=== PATIENT | female | born 1995 | race Caucasian/White ===

== ENCOUNTER → 2024-09-10 10:51 | Outpatient (REF) | payer OTHER, SELFPAY | LOC: PNTC 10:51 | PROVIDERS: ATTENDING PHYSICIAN Student in an Organized Health Care Education/Training Program | DX: Z36.82 Encounter for antenatal screening for nuchal translucency (principal); Z36.0 Encounter for antenatal screening for chromosomal anomalies | CPT/HCPCS: 76801; 76813 ==

== ENCOUNTER → 2024-10-08 10:53 | Outpatient (REF) | payer OTHER, SELFPAY | LOC: PNTC 10:53 | PROVIDERS: ATTENDING PHYSICIAN Student in an Organized Health Care Education/Training Program | DX: O99.210 Obesity complicating pregnancy, unspecified trimester (principal); O14.90 Unspecified pre-eclampsia, unspecified trimester | CPT/HCPCS: 76805 ==

== ENCOUNTER 2024-10-09 21:18 | Emergency (ER) | payer OTHER, SELFPAY ==
[2024-10-09 21:33] VITALS: BP 127/87
[2024-10-09 22:01] LABS: Hematocrit 42.7 % (37.0-47.0); Hemoglobin 15.3 g/dL (12.0-16.0); Mean Corp Hgb Conc. 35.8 g/dL (33.0-37.0); Mean Corpuscular Hgb 31.4 pg (27.0-31.0); Mean Corpuscular Volume 87.5 fL (81.0-99.0); Mean Platelet Volume 9.6 fL (7.4-10.4); Platelet Count 277 10^3/uL (130-400); Red Blood Cell Count 4.88 10^6/uL (4.20-5.40); White Blood Cell Count 23.1 10^3/uL (4.8-10.8)
[2024-10-09 22:08] LABS: COVID-19 Antigen Negative (Negative)
[2024-10-09 22:13] LABS: ALT (SGPT) 19 U/L (0-35); AST (SGOT) 26 U/L (14-36); Albumin 4.5 g/dl (3.5-5.0); Alkaline Phosphatase 74 U/L (38-126); Blood Urea Nitrogen 11 mg/dl (7-17); Calcium 9.2 mg/dl (8.4-10.2); Carbon Dioxide 24 mmol/L (22-30); Chloride 99 mmol/L (98-107); Glucose 117 mg/dl (70-99); Potassium 3.4 mmol/L (3.5-5.1); Sodium 133 mmol/L (135-145); Total Bilirubin 0.5 mg/dl (0.2-1.3); Total Protein 7.7 g/dl (6.3-8.2); eGFR > 60.00
[2024-10-09 22:14] LABS: Lipase 85 U/L (23-300)
[2024-10-09 22:23] VITALS: BMI 30.6
[2024-10-09] MEDS: ZOFRAN 4 MG IV (22:26)
[2024-10-09 22:32] LABS: % Basophils 0.2 % (0-2); % Eosinophils 0.2 % (0-6); % Immature Granulocytes 0.6 % (0-0.5); % Monocytes 5.7 % (1.7-9.3); % Neutrophils 89.3 % (42.2-75.2); Absolute Basophils 0.1 10^3/uL (0-0.2); Absolute Immature Granulocytes 0.1 10^3/uL (0-0.05); Absolute Lymphocytes 0.9 10^3/uL (1.2-3.4); Absolute Monocytes 1.3 10^3/uL (0.1-0.6); Absolute Neutrophils 20.7 10^3/uL (1.4-6.5); Nucleated Red Blood Cells % 0 %
--- NOTE | 2024-10-09 22:58 | ED.GENMED ---
History of Present Illness
General
Chief Complaint: Abdominal Symptoms
Source: patient
Exam Limitations: none
Time Seen by Provider: 10/09/24 22:53
Nursing documentation reviewed up to this point in time: agreed with
History of Present Illness
History of Present Illness:
Pleasant 28-year-old female presents emergency department with nausea vomiting diarrhea since 6 PM. She does report light abdominal pain. She is 16 weeks . She called her EDUCATIONAL PARAPROFESSIONAL who advised her to come in for fluids. She denies vaginal
bleeding or discharge. She denies fever or chills. Reports no chest pain or shortness of breath.
Past History
Past History
ED Past Medical History: None
ED Past Surgical History: None
Social History
Tobacco: Non-smoker
Alcohol: None
Drug: None
Personal: Single
Living: with family
Employment: Employed
Review of Systems
Review of Systems
Allergies reviewed?: Yes
All Other Systems: ROS reviewed and negative except as documented in HPI and ROS
Constitutional: Reports no symptoms
EENT: Reports no symptoms
Respiratory: Reports no symptoms
Cardiac: Reports no symptoms
ABD/GI: Reports abdominal pain, nausea, vomiting and diarrhea
: Reports no symptoms
Musculoskeletal: Reports no symptoms
Skin: Reports no symptoms
Neurological: Reports no symptoms
Endocrine: Reports no symptoms
Hematologic/Lymphatic: Reports no symptoms
Psychiatric: Reports anxiety
Phy Exam
General Physical Exam
General Presentation: well appearing and mild distress
General age: appears stated age
General Skin: warm and dry
General Habitus: normal
General Mental: alert
General Hydration: appears well hydrated
ENT Exam
ENT Exam: EOMI, pharynx normal, neck supple and normocephalic
Eye Exam
Eye Exam: PERRL, cornea clear and conjunctiva normal
Cardiovascular Exam
Cardiovascular Exam: regular rate/rhythm, no edema, no murmur and normal peripheral pulses
Pulmonary Exam
Pulmonary Exam: lungs clear, no respiratory distress, no rales, no crackles, no rhonchi, no stridor, no wheezing and no cough
Gastrointestinal Exam
Gastrointestinal Exam: normal bowel sounds, soft, no organomegaly, no pulsatile mass and non distended
Palpation: generalized: Minimal tenderness
Auscultation of Abdomen: normal
Neurological Exam
Neurological Exam: alert, oriented x3, no motor deficits and speech normal
Musculoskeletal Exam
Musculoskeletal Exam: full ROM and no edema
Skin Exam
Skin Exam: normal color, warm/dry, no rash and no petechia
Psychiatric Exam
Psychiatric Exam: normal mood/affect
Course
Orders/Labs/Results
Orders:
Orders
10/09/24 21:37
IV Insert/Care/Rem.- Treatment PRN
10/09/24 21:46
COVID-19 Antigen Urgent
Source: Nasal Swab
Comment: .
Complete Blood Count/With Diff Urgent
Comprehensive Metabolic Panel Urgent
Lipase Urgent
10/09/24 22:04
Ondansetron Orally Disint [Zofran Odt (Orally Disintegrating)] 4 mg .ROUTE .STK-MED ONE
10/09/24 22:08
Ondansetron Injectable [Zofran] 4 mg .ROUTE .STK-MED ONE
10/09/24 22:26
Ondansetron Injectable [Zofran] 4 mg IV NOW STA
10/09/24 22:57
0.9% Sodium Chloride 1000 ml [Nss] 1,000 ml IV BOLUS
US Limited Urgent
Reason For Exam: n/v 16weeks
10/10/24 01:13
Metoclopramide [Reglan] 10 mg IV NOW STA
Abnormal Lab Results
10/09/24
21:46
WBC 23.1 H 10^3/uL
(4.8-10.8)
MCH 31.4 H pg
(27.0-31.0)
Abs Immat Gran (auto) 0.1 H 10^3/uL
(0-0.05)
Absolute Neuts (auto) 20.7 H 10^3/uL
(1.4-6.5)
Absolute Lymphs (auto) 0.9 L 10^3/uL
(1.2-3.4)
Absolute Monos (auto) 1.3 H 10^3/uL
(0.1-0.6)
Immature Gran % 0.6 H %
(0-0.5)
Neutrophils % 89.3 H %
(42.2-75.2)
Lymphocytes % 4.0 L %
(20.5-51.1)
Sodium 133 L mmol/L
(135-145)
Potassium 3.4 L mmol/L
(3.5-5.1)
Creatinine 0.5 L mg/dL
(0.6-1.0)
Glucose 117 H mg/dl
(70-99)
10/09/24 21:46
10/09/24 21:46
Vital Signs
Initial and Last Documented VS:
Initial Vital Signs
Temp Pulse Resp BP Pulse Ox
97.3 F 91 20 127/87 99
10/09/24 21:33 10/09/24 21:33 10/09/24 21:33 10/09/24 21:33 10/09/24 21:33
Last Documented Vital Signs
Temp Pulse Resp BP Pulse Ox
97.3 F 91 20 118/70 98
10/09/24 21:33 10/09/24 21:33 10/09/24 21:33 10/10/24 00:09 10/10/24 01:01
*Critical Care Note
Total Time (30-74mins, 75-104mins- exclusive of procedures): Not Applicable
Update Note
Update Note:
Nausea, diarrhea, no pelvic complaints
16 weeks and 5 day
Ultrasound pelvis
Comparison: October 08, 2024
IMPRESSION:
Single live intrauterine . heart rate 149 bpm.
Posterior placenta without retroplacental hemorrhage.
Cervix long and closed measuring at least 3.3 cm.
10/10/2024 0131 AM: Patient started to feel better. Ultrasound results discussed with her. Patient denies vaginal bleeding or discharge. She reports minimal abdominal pain. Patient denies fever or chills. She does follow-up with [facility]. She will try to remain hydrated. She understands that she may need to return to the emergency department should she not be able to keep anything down. She will get Reglan.
ED Attending Note
-
Portions of this chart may have been created with voice recognition software.� Occasional wrong word or��sound alike� substitutions may have occurred due to the inherent limitations of voice recognition software.
Discharge Plan
Departure
Patient Disposition: Home (Routine Discharge)
Date of Disposition: 10/10/24
Time of Disposition: 01:46
Patient with high blood pressure during this ER visit?: No
Condition: Fair
Discharge Problem:
Nausea and vomiting during
Instructions: Clear Liquid Diet, Jack Diet, Nausea and Vomiting, Adult (DC), Abdominal Pain
Prescriptions:
New
metoclopramide HCl [Reglan] 10 mg tablet
10 mg PO Q6H PRN (Reason: nausea and vomiting) Qty: 10 0RF
No Action
desog-e.estradiol/e.estradiol [Kariva (28)] 1 EACH tablet
1 tab PO DAILY
cyclobenzaprine 10 MG tablet
10 mg PO HS 10 Days Qty: 10 0RF
ibuprofen 600 MG tablet
600 mg PO Q8HPRN PRN (Reason: pain) Qty: 20 0RF
Referrals:
Donna Fisher MD [Family Provider] -
Activity Restrictions/Additional Instructions:
your prescriptions were sent to the [facility] pharmacy
It was a pleasure meeting you and taking part in your care. We hope for your continued healing and wellness.
Please read discharge instructions in their entirety. However, they are for general education and may not describe your exact diagnosis at discharge. Information on your ER visit and medical conditions were discussed with you along with appropriate
follow up information...
If indicated, please take your medications as instructed and indicated on discharge paperwork.
Please schedule a follow up appointment as directed. Call to schedule an appointment
Please return to the emergency department with ANY change in, persisting, or worsening of symptoms. If any of your symptoms do not improve, or persist, or become more severe within 6-12 hours, please return to the emergency department for further
care.
Please return to the emergency department if you develop a headache, neck pain/stiffness, fever greater than 100.4F, chest pain, shortness of breath, persistent nausea, vomiting, slurred speech, difficulty walking, numbness/tingling, weakness, signs
of infection or any other symptoms that are worrisome to you.
If you have any questions or concerns please do not hesitate to call the Hospital at or E-mail me directly at [email or web address]
Interventions
Interventions:
*Risk Screen - Suicide Last Done: 10/09/24 21:33
*General Assessment Last Done: 10/09/24 21:33
*Neglect/Abuse Screening Last Done: 10/09/24 21:33
ED- Fall Risk Assessment Last Done: 10/09/24 21:33
*ED COVID-19 Vaccine History Last Done: 10/09/24 21:33
*Nursing Disposition Last Done: 10/10/24 01:46
FT-Tufpyv-Sddpneupcw Assessment Last Done: 10/09/24 22:23
Discharge Date and Time
Discharge Date/Time: 10/10/24 01:54
Print Language: [place] ISLANDER
[2024-10-09] MEDS: NSS 1000 IV (23:07)
[2024-10-10 00:08] VITALS: BP 112/68
[2024-10-10 00:09] VITALS: BP 118/70
[2024-10-10] MEDS: REGLAN 10 MG IV (01:27)
== END 2024-10-10 01:54 | disposition home or self-care (01) ==
LOC: EMR 21:18
PROVIDERS: Emergency Medicine; EMERGENCY PHYSICIAN Student in an Organized Health Care Education/Training Program; FAMILY PHYSICIAN Family Medicine
DX: O21.9 Vomiting of pregnancy, unspecified (principal); Z3A.16 16 weeks gestation of pregnancy; O99.891 Other specified diseases and conditions complicating pregnancy; R19.7 Diarrhea, unspecified; R10.9 Unspecified abdominal pain; Z11.52 Encounter for screening for COVID-19
CPT/HCPCS: 99284; 96374; 96375; 96361; 76815; 80053; 83690; 85025; 87811

== ENCOUNTER → 2024-11-05 10:44 | Outpatient (REF) | payer OTHER, SELFPAY | LOC: PNTC 10:44 | PROVIDERS: ATTENDING PHYSICIAN Student in an Organized Health Care Education/Training Program | DX: O99.210 Obesity complicating pregnancy, unspecified trimester (principal) | CPT/HCPCS: 76811 ==

== ENCOUNTER 2024-12-13 10:39 | Observation (INO) | payer OTHER, SELFPAY ==
[2024-12-13 10:54] VITALS: BP 129/71; BMI 33.4
== END 2024-12-13 11:27 | disposition home or self-care (01) ==
LOC: LDRP 10:39
PROVIDERS: ADMITTING PHYSICIAN Student in an Organized Health Care Education/Training Program
DX: O36.8120 Decreased fetal movements, second trimester, not applicable or unspecified (principal); O99.212 Obesity complicating pregnancy, second trimester; Z3A.25 25 weeks gestation of pregnancy; O26.892 Other specified pregnancy related conditions, second trimester; Z67.91 Unspecified blood type, Rh negative
CPT/HCPCS: 59025; G0378

== ENCOUNTER → 2024-12-24 16:44 | Outpatient (REF) | payer OTHER, SELFPAY | LOC: PNTC 16:44 | PROVIDERS: ATTENDING PHYSICIAN Obstetrics & Gynecology | DX: O99.210 Obesity complicating pregnancy, unspecified trimester (principal) | CPT/HCPCS: 76816 ==

== ENCOUNTER → 2024-12-31 12:03 | Outpatient (REF) | payer OTHER, SELFPAY | LOC: PNTC 12:03 | PROVIDERS: ATTENDING PHYSICIAN Obstetrics & Gynecology | DX: Z34.90 Encounter for supervision of normal pregnancy, unspecified, unspecified trimester (principal) | CPT/HCPCS: 36415; 86850; 86900; 86901; 96372; J2790 ==

== ENCOUNTER → 2025-02-04 11:40 | Outpatient (REF) | payer OTHER, SELFPAY | LOC: PNTC 11:40 | PROVIDERS: ATTENDING PHYSICIAN Obstetrics & Gynecology | DX: O99.210 Obesity complicating pregnancy, unspecified trimester (principal) | CPT/HCPCS: 76816 ==

== ENCOUNTER 2025-03-24 02:10 | Inpatient (IN) | payer OTHER, SELFPAY ==
[2025-03-24 02:38] VITALS: BP 111/64; BMI 37.6
[2025-03-24] MEDS: LR 1000 IV ×2 (03:02→05:15)
[2025-03-24] MEDS: PENICILLIN 110 UNITS IV (03:03)
[2025-03-24 03:07] LABS: % Basophils 0.5 % (0-2); % Eosinophils 0.5 % (0-6); % Immature Granulocytes 0.6 % (0-0.5); % Lymphocytes 10.9 % (20.5-51.1); % Monocytes 6.8 % (1.7-9.3); % Neutrophils 80.7 % (42.2-75.2); Absolute Basophils 0.1 10^3/uL (0-0.2); Absolute Eosinophils 0.1 10^3/uL (0-0.7); Absolute Immature Granulocytes 0.1 10^3/uL (0-0.05); Absolute Lymphocytes 1.9 10^3/uL (1.2-3.4); Absolute Monocytes 1.2 10^3/uL (0.1-0.6); Absolute Neutrophils 13.7 10^3/uL (1.4-6.5); Hematocrit 41.1 % (37.0-47.0); Hemoglobin 14.5 g/dL (12.0-16.0); Mean Corp Hgb Conc. 35.3 g/dL (33.0-37.0); Mean Corpuscular Hgb 31.3 pg (27.0-31.0); Mean Corpuscular Volume 88.8 fL (81.0-99.0); Mean Platelet Volume 10.6 fL (7.4-10.4); Nucleated Red Blood Cells % 0 %; Platelet Count 222 10^3/uL (130-400); Red Blood Cell Count 4.63 10^6/uL (4.20-5.40); Red Cell Dist. Width 12.2 % (11.5-14.5); White Blood Cell Count 16.9 10^3/uL (4.8-10.8)
[2025-03-24] MEDS: STADOL 1 MG IV ×2 (04:08→11:14)
[2025-03-24] MEDS: PENICILLIN 55 UNITS IV ×5 (06:51→23:06)
[2025-03-24] MEDS: ZOFRAN 4 MG IV (11:14)
[2025-03-24] MEDS: PITOCIN 30 UNITS/NSS 500 ML IV (21:43)
[2025-03-25] MEDS: PRENATAL PLUS PO (00:50)
[2025-03-25] MEDS: SUBLIMAZE 100 MCG EPIDURAL (01:48)
[2025-03-25] MEDS: FENTANYL/BUPIVACAINE 100 EPIDURAL ×2 (01:49→09:32)
[2025-03-25] MEDS: ZOFRAN 4 MG IV ×2 (02:35→08:43)
[2025-03-25] MEDS: PENICILLIN 55 UNITS IV ×3 (02:51→11:06)
[2025-03-25] MEDS: LR 1000 IV (04:30)
[2025-03-25] MEDS: MOTRIN 600 MG PO ×2 (15:14→22:05)
[2025-03-25] MEDS: SENOKOT-S 1 TABLET PO (15:14)
[2025-03-25] MEDS: PRENATAL PLUS 1 TABLET PO (22:05)
[2025-03-26 05:35] LABS: Hematocrit 34.4 % (37.0-47.0); Hemoglobin 11.8 g/dL (12.0-16.0)
[2025-03-26] MEDS: MOTRIN 600 MG PO ×3 (05:35→21:31)
[2025-03-26] MEDS: SENOKOT-S 1 TABLET PO (11:32)
[2025-03-26] MEDS: RHOGAM 300 MCG IM (18:59)
[2025-03-26] MEDS: PRENATAL PLUS 1 TABLET PO (21:31)
[2025-03-27] MEDS: MOTRIN 600 MG PO (06:47)
[2025-03-27 13:44] LABS: Syphilis/T. pallidum Ab Reflex Negative (Negative)
== END 2025-03-27 11:22 | disposition home or self-care (01) | DRG 807 ==
LOC: LDRP 02:10
PROVIDERS: Obstetrics & Gynecology; ADMITTING PHYSICIAN Student in an Organized Health Care Education/Training Program
PROC: 0HQ9XZZ Repair Perineum Skin, External Approach (ICD-10-PCS; 2025-03-25)
PROC: 10E0XZZ Delivery of Products of Conception, External Approach (ICD-10-PCS; 2025-03-25)
PROC: 3E0334Z Introduction of Serum, Toxoid and Vaccine into Peripheral Vein, Percutaneous Approach (ICD-10-PCS; 2025-03-26)
DX: O99.824 Streptococcus B carrier state complicating childbirth (principal); Z37.0 Single live birth; O70.0 First degree perineal laceration during delivery; Z3A.39 39 weeks gestation of pregnancy; O26.893 Other specified pregnancy related conditions, third trimester; Z67.11 Type A blood, Rh negative
CPT/HCPCS: 85014; 85018; 85025; 85461; 86780; 86850; 86900; 86901; J2790

== ENCOUNTER 2025-04-19 16:15 | Inpatient (IN) | payer OTHER, SELFPAY ==
[2025-04-19] VITALS (10 sets, daily range): BP systolic 93–126; BP diastolic 52–72; BMI 37.0; BMI 33.3
--- NOTE | 2025-04-19 12:03 | ED.GENMED ---
History of Present Illness
<Shaista Silvestre PA-C - Last Filed: 04/19/25 15:11>
General
Chief Complaint: Abdominal Symptoms
Source: patient
Exam Limitations: none
Time Seen by Provider: 04/19/25 11:47
History of Present Illness
History of Present Illness:
29yoF who is currently about (delivered vaginally at 40 weeks on 03/25/25 without complication) presenting for evaluation of a fever. Patient has been experiencing an off-white foul smelling vaginal discharge for the past few days. She
woke up this morning with chills and body aches and spiked a fever of 101.9. She also reports pain in the lower abdomen/pelvic region. She denies dysuria, vomiting, diarrhea, URI symptoms. Of note, patient is currently on prednisone for rash and
is about 7 days into treatment. Dermatology diagnosed her with PUPPP. She was also started on a topical antibiotic a few days ago after the skin biopsy location in the left upper thigh became infected.
Past History
<Shaista Silvestre PA-C - Last Filed: 04/19/25 15:11>
Past History
ED Past Medical History: None
ED Past Surgical History: None
Social History
Tobacco: Non-smoker
Alcohol: None
Drug: None
Personal: Single
Living: with family
Employment: Employed
Phy Exam
<Shaista Silvestre PA-C - Last Filed: 04/19/25 15:11>
General Physical Exam
General Presentation: no apparent distress
General Skin: warm and diaphoretic
General Habitus: normal
General Mental: alert
ENT Exam
ENT Exam: pharynx normal, neck supple and normocephalic
Cardiovascular Exam
Cardiovascular Exam: regular rate/rhythm and no murmur
Pulmonary Exam
Pulmonary Exam: lungs clear, no respiratory distress, no rales, no crackles, no rhonchi and no wheezing
Gastrointestinal Exam
Gastrointestinal Exam: soft, non distended and other (+Tenderness in RLQ and suprapubic region)
Genitourinary Exam Female
Exam Female: other (Moderate amount of brownish discharge noted on speculum exam)
Neurological Exam
Neurological Exam: alert
Jessica Coma Scale
Eye Opening: Spontaneous
Verbal Response: Oriented
Motor Response: Obeys Commands
GCS Total Score: 15
Skin Exam
Skin Exam: normal color, warm/dry and other (Punch biopsy location in the L upper thigh with a small amount of yellow drainage. No surrounding cellulitis. )
Psychiatric Exam
Psychiatric Exam: normal mood/affect
Course
<Shaista Silvestre PA-C - Last Filed: 04/19/25 15:11>
Orders/Labs/Results
Orders:
Orders
04/19/25 11:56
0.9% Sodium Chloride 1000 ml [Nss] 1,000 ml IV BOLUS
04/19/25 12:07
COVID-19 Antigen Urgent
Source: Nasal Swab
Complete Blood Count/With Diff Urgent
Comprehensive Metabolic Panel Urgent
Lactate Level [Lactic Acid] Urgent
Urinalysis Reflex To Culture Urgent
Date Specimen was Collected: 04/19/25
Time Specimen was Collected: 12:03
Urine Microscopic Reflex Cult Urgent
Influenza A+B Rapid Molecular Urgent
SALVATORE Source: Nasal Swab
Specimen Description:
Urine Culture Urgent
SALVATORE Source: U
Specimen Description:
Date Specimen was Collected: 04/19/25
Time Specimen was Collected: 12:03
04/19/25 12:12
Wound Culture [Wound/Abscess/Other Culture] Urgent
SALVATORE Source: Leg
Specimen Description: Left
Date Specimen was Collected: 04/19/25
Time Specimen was Collected: 12:11
Comment: L upper thigh
04/19/25 12:25
US Pelvis Only (non-obstetric) Urgent
Reason For Exam: pelvic pain, fever, 3 weeks
04/19/25 12:28
CT Abd/pelvis W Iv Cont Urgent
Comment:
Reason For Exam: Lower abd pain, fever
04/19/25 12:41
Chlamydia/GC by PCR Urgent
SALVATORE Source: Endo-Cervical
Specimen Description:
Source:: ENDOCERVICAL
Date Specimen was Collected: 04/19/25
Time Specimen was Collected: 12:30
Genital Culture Urgent
SALVATORE Source: Endo-Cervical
Specimen Description:
Date Specimen was Collected: 04/19/25
Time Specimen was Collected: 12:30
Trichomonas - Wet Prep Urgent
SALVATORE Source: Vagina
Specimen Description:
Date Specimen was Collected: 04/19/25
Time Specimen was Collected: 12:30
04/19/25 13:03
Piperacillin/Tazo 4.5 Gram [Zosyn] 4.5 gram in 100 ml IV NOW
04/19/25 13:04
0.9% Sodium Chloride 1000 ml [Nss] 1,000 ml IV BOLUS
04/19/25 13:37
Blood Culture Q30M
SALVATORE Source: Blood/Venous
Specimen Description:
Blood Culture Q30M
SALVATORE Source: Blood/Venous
Specimen Description:
Abnormal Lab Results
04/19/25
12:07
WBC 27.2 H 10^3/uL
(4.8-10.8)
Abs Immat Gran (auto) 0.2 H 10^3/uL
(0-0.05)
Absolute Neuts (auto) 23.7 H 10^3/uL
(1.4-6.5)
Absolute Monos (auto) 1.9 H 10^3/uL
(0.1-0.6)
Immature Gran % 0.7 H %
(0-0.5)
Neutrophils % 87.2 H %
(42.2-75.2)
Lymphocytes % 4.5 L %
(20.5-51.1)
Lactic Acid 2.3 H mmol/L
(0.7-2.0)
Ur Occult Blood Reflex 4+ A
(Negative)
Leukocyte Esterase Rfl 3+ A
(Negative)
Urine RBC 16-20 A /HPF
(0-2)
Urine Bacteria (Reflex) Few A
(Negative)
Urine Albumin (Reflex) 2+ A
(Neg - Trace)
04/19/25 12:07
04/19/25 12:07
Vital Signs
Initial and Last Documented VS:
Initial Vital Signs
Temp Pulse Resp BP Pulse Ox
99.6 F 112 18 102/64 99
04/19/25 11:30 04/19/25 11:30 04/19/25 11:30 04/19/25 11:30 04/19/25 11:30
Last Documented Vital Signs
Temp Pulse Resp BP Pulse Ox
99 F 84 18 93/52 96
04/19/25 14:25 04/19/25 14:45 04/19/25 14:45 04/19/25 14:36 04/19/25 14:36
<Richy Giles MD - Last Filed: 04/19/25 12:40>
Orders/Labs/Results
Orders:
Orders
04/19/25 11:56
0.9% Sodium Chloride 1000 ml [Nss] 1,000 ml IV BOLUS
04/19/25 12:07
COVID-19 Antigen Urgent
Source: Nasal Swab
Complete Blood Count/With Diff Urgent
Comprehensive Metabolic Panel Urgent
Lactate Level [Lactic Acid] Urgent
Urinalysis Reflex To Culture Urgent
Date Specimen was Collected: 04/19/25
Time Specimen was Collected: 12:03
Urine Microscopic Reflex Cult Urgent
Influenza A+B Rapid Molecular Urgent
SALVATORE Source: Nasal Swab
Specimen Description:
Urine Culture Urgent
SALV[place]ORE Source: U
Specimen Description:
Date Specimen was Collected: 04/19/25
Time Specimen was Collected: 12:03
04/19/25 12:12
Wound Culture [Wound/Abscess/Other Culture] Urgent
SALVATORE Source: Leg
Specimen Description: Left
Date Specimen was Collected: 04/19/25
Time Specimen was Collected: 12:11
Comment: L upper thigh
04/19/25 12:25
US Pelvis Only (non-obstetric) Urgent
Reason For Exam: pelvic pain, fever, 3 weeks
04/19/25 12:28
CT Abd/pelvis W Iv Cont Urgent
Comment:
Reason For Exam: Lower abd pain, fever
04/19/25 12:41
Chlamydia/GC by PCR Urgent
SAL[place]ATORE Source: Endo-Cervical
Specimen Description:
Source:: ENDOCERVICAL
Date Specimen was Collected: 04/19/25
Time Specimen was Collected: 12:30
Genital Culture Urgent
SALVATORE Source: Endo-Cervical
Specimen Description:
Date Specimen was Collected: 04/19/25
Time Specimen was Collected: 12:30
Trichomonas - Wet Prep Urgent
SALVATORE Source: Vagina
Specimen Description:
Date Specimen was Collected: 04/19/25
Time Specimen was Collected: 12:30
04/19/25 13:03
Piperacillin/Tazo 4.5 Gram [Zosyn] 4.5 gram in 100 ml IV NOW
04/19/25 13:04
0.9% Sodium Chloride 1000 ml [Nss] 1,000 ml IV BOLUS
04/19/25 13:37
Blood Culture Q30M
SALVATORE Source: Blood/Venous
Specimen Description:
Blood Culture Q30M
SAL[place]ORE Source: Blood/Venous
Specimen Description:
Abnormal Lab Results
04/19/25
12:07
WBC 27.2 H 10^3/uL
(4.8-10.8)
Abs Immat Gran (auto) 0.2 H 10^3/uL
(0-0.05)
Absolute Neuts (auto) 23.7 H 10^3/uL
(1.4-6.5)
Absolute Monos (auto) 1.9 H 10^3/uL
(0.1-0.6)
Immature Gran % 0.7 H %
(0-0.5)
Neutrophils % 87.2 H %
(42.2-75.2)
Lymphocytes % 4.5 L %
(20.5-51.1)
Lactic Acid 2.3 H mmol/L
(0.7-2.0)
Ur Occult Blood Reflex 4+ A
(Negative)
Leukocyte Esterase Rfl 3+ A
(Negative)
Urine RBC 16-20 A /HPF
(0-2)
Urine Bacteria (Reflex) Few A
(Negative)
Urine Albumin (Reflex) 2+ A
(Neg - Trace)
04/19/25 12:07
04/19/25 12:07
Vital Signs
Initial and Last Documented VS:
Initial Vital Signs
Temp Pulse Resp BP Pulse Ox
99.6 F 112 18 102/64 99
04/19/25 11:30 04/19/25 11:30 04/19/25 11:30 04/19/25 11:30 04/19/25 11:30
Last Documented Vital Signs
Temp Pulse Resp BP Pulse Ox
99 F 84 18 93/52 96
04/19/25 14:25 04/19/25 14:45 04/19/25 14:45 04/19/25 14:36 04/19/25 14:36
<Shaista Silvestre PA-C - Last Filed: 04/19/25 15:11>
MDM/Problems Addressed
Differential Diagnosis Includes:
29yoF here with fever and chills that started this morning. C/o vaginal discharge for a few days. Currently 3 weeks . Temp 99.6 on arrival although she did take ibuprofen FLAT SURFACER. HR 112. BP stable. She is non-toxic. There is lower abdominal
tenderness on exam with some brownish vaginal discharge. Differential diagnosis includes: endometritis, UTI, viral illness, sepsis
Initial ED plan: Check CBC, CMP, lactate, COVID/flu swab, UA, vaginal swabs, and wound culture of L thigh wound, pelvic ultrasound, and CT abdomen. IV fluid bolus.
<Shaista Silvestre PA-C - Last Filed: 04/19/25 15:11>
*Pulse Oximetry
SaO2: 99
Oxygen Mode of Delivery: Room air
Patient hypoxic: no (99%)
*Critical Care Note
Total Time (30-74mins, 75-104mins- exclusive of procedures): Not Applicable
<Shaista Silvestre PA-C - Last Filed: 04/19/25 15:11>
Update Note
Update Note:
Labs reveal a significant leukocytosis with a WBC of 27.2 with a left shift. Lactate WNL. No signs of infection on urinalysis. Pelvic ultrasound normal and no evidence of infection on CT. Case discussed with OBGYN due to concern for endometritis. IV
Zosyn and blood cultures ordered. Patient admitted for further management.
ED Attending Note
<Shaista Silvestre PA-C - Last Filed: 04/19/25 15:11>
-
Portions of this chart may have been created with voice recognition software.� Occasional wrong word or��sound alike� substitutions may have occurred due to the inherent limitations of voice recognition software.
<Richy Giles MD - Last Filed: 04/19/25 12:40>
ED Attending Note
Patient seen and examined by attending physician: Yes
I performed the substantive portion of visit, reviewed & personally made and approve the management plan that is documented in note by myself or SILVIA.: Yes
ED Attending Note:
29-year-old female has had some vaginal discharge for 5 days. However this morning developed general lower abdominal pain fever to 101.9. No urinary symptoms no respiratory symptoms some mild nausea
On exam patient is nontoxic. Warm and dry. Perfusing well. Lungs clear and equal. No CVA tenderness. Heart regular rate and rhythm no murmur. Abdomen is soft. Mild diffuse lower abdominal tenderness without rebound or guarding. Lower
abdominal stretch toro. Extremities warm and dry. Mild maculopapular rash of the lower extremities.
Impression lower abdominal discomfort fever significant leukocytosis. She is on a tapering dose of steroids for her skin rash which may be part of the leukocytosis however significant leukocytosis. Suspicious for endometritis. CT scan ultrasound
pending. We will contact PROTECTIVE SIGNAL OPERATOR.
Discharge Plan
Departure
Patient Disposition: Admit
Date of Disposition: 04/19/25
Time of Disposition: 14:36
Presentation/result/management discussed w/ accepting MD/DO: Dr. Rolon
Discharge Problem:
Endometritis, Fever
Prescriptions:
No Action
ibuprofen 600 mg Tablet
600 mg PO Q6HPRN PRN (Reason: moderate pain/cramps) Qty: 30 0RF
prednisone 10 mg Tablet
10 mg PO DIRECTED
Rx Instructions:
TAKE 40MG DAILY FOR 5 DAYS THEN 20MG DAILY FOR 5 DAYS THEN 10MG DAILY FOR 5 DAYS
PNV cmb#95-ferrous fumarate-FA [] 28 mg iron- 800 mcg Tablet
1 tab PO DAILY
Referrals:
PRIVATE,PHYSICIAN [Family Provider, Internal Medicine]
Interventions
Interventions:
*Risk Screen - Suicide Last Done: 04/19/25 12:16
*General Assessment Last Done: 04/19/25 11:30
*Neglect/Abuse Screening Last Done: 04/19/25 12:16
*ED- Fall Risk Assessment Last Done: 04/19/25 12:16
*ED COVID-19 Vaccine History Last Done: 04/19/25 12:16
EP-Yajpei-Kvncrpwmam Assessment Last Done: 04/19/25 12:16
Discharge Date and Time
Print Language: LUXEMBOURGISH
[2025-04-19] MEDS: NSS 1000 IV ×3 (12:10→16:50)
[2025-04-19 12:21] LABS: Urine Character Clear (Clear)
[2025-04-19 12:28] LABS: Hematocrit 43.7 % (37.0-47.0); Hemoglobin 15.1 g/dL (12.0-16.0); Mean Corp Hgb Conc. 34.6 g/dL (33.0-37.0); Mean Corpuscular Volume 89.4 fL (81.0-99.0); Platelet Count 283 10^3/uL (130-400); Red Cell Dist. Width 11.9 % (11.5-14.5)
[2025-04-19 12:29] LABS: Urine Red Blood Cell 16-20 /HPF (0-2)
[2025-04-19 12:35] LABS: ALT (SGPT) 24 U/L (0-35); AST (SGOT) 20 U/L (14-36); Albumin 4.0 g/dl (3.5-5.0); Alkaline Phosphatase 97 U/L (38-126); Blood Urea Nitrogen 15 mg/dl (7-17); Calcium 9.3 mg/dl (8.4-10.2); Carbon Dioxide 25 mmol/L (22-30); Chloride 104 mmol/L (98-107); Glucose 86 mg/dl (70-99); Potassium 3.7 mmol/L (3.5-5.1); Sodium 136 mmol/L (135-145); Total Protein 7.1 g/dl (6.3-8.2); eGFR > 60.00
[2025-04-19 12:42] LABS: COVID-19 Antigen Negative (Negative)
[2025-04-19 12:48] LABS: Nucleated Red Blood Cells % 0 %
[2025-04-19] MEDS: ZOSYN 100 IV (13:43)
--- NOTE | 2025-04-19 15:48 | W.PN.OBG.DWH ---
Today's Communication / Plan
-
begin abx
Assessment/Plan
-
PPD #25
fever
PUPP on steroid taper
given proximity to delivery will treat for presumed endometritis
begin abx, continue with steroid taper prednisone tomorrow 20 mg then 10 mg x 5d
await results cx
Subjective Data
-
pt seen and examined
admission h and p dictated
Objective Data
-
Laboratory Results
04/19/25 12:07
04/19/25 12:07
Vital Signs
Temp Pulse Resp BP Pulse Ox
99 F 84 18 98/67 96
04/19/25 14:25 04/19/25 14:45 04/19/25 14:45 04/19/25 15:00 04/19/25 14:51
lungs cl
breasts no erythema, no lesions, no masses
abd soft nt, stretch toro, excisional bx site healing with out erythema, exudate
ext nt
[2025-04-19] MEDS: DELTASONE 20 MG PO (16:15)
[2025-04-19] MEDS: ZOSYN 50 IV ×2 (17:35→23:19)
--- NOTE | 2025-04-19 17:47 | PTCARENOTE ---
Patient admitted to 2S at this time for endometritis. PPD 25. Oriented to room. Spouse and staying in room with patient. Patient is , zosyn compatible. Room set up for baby with bassinet. VSS. Patient with some
abdominal cramping at this time, but tolerable. Ordered dinner, on regular diet. Patient with recent skin rash, received biopsy at [facility], which then got infected. Receiving mupirocin and prednisone taper. Meds sent to pharmacy.
[2025-04-19] MEDS: BACTROBAN 2% OINTMENT 1 APPLIC TOPICAL (19:48)
[2025-04-19] MEDS: TYLENOL 650 MG PO (23:18)
[2025-04-20] MEDS: NSS 1000 IV ×2 (01:12→09:47)
[2025-04-20] MEDS: ZOSYN 50 IV ×4 (05:05→23:11)
[2025-04-20 07:09] LABS: Hematocrit 40.8 % (37.0-47.0); Hemoglobin 14.0 g/dL (12.0-16.0); Mean Corp Hgb Conc. 34.3 g/dL (33.0-37.0); Mean Corpuscular Volume 90.9 fL (81.0-99.0); Nucleated Red Blood Cells % 0 %; Platelet Count 250 10^3/uL (130-400); Red Cell Dist. Width 11.9 % (11.5-14.5)
[2025-04-20] MEDS: DELTASONE 10 MG PO (07:36)
[2025-04-20] MEDS: BACTROBAN 2% OINTMENT 1 APPLIC TOPICAL ×2 (07:36→21:05)
[2025-04-20] MEDS: PRENATAL PLUS 1 TABLET PO (07:36)
[2025-04-20 07:45] VITALS: BP 105/63
--- NOTE | 2025-04-20 10:13 | CM ---
Reviewed the chart notes and spoke with the patient and her spouse at the bedside. The patient resides in a two story home with one step to enter with spouse and new born daughter. The patient reports no DME/VN/SNF. The patient confirmed her
pharmacy of choice is [facility]. CM continues to be available to patient/family and is monitoring medical plan for needs at discharge.
Plan: Discharge to home when medically stable. No needs anticipated.
--- NOTE | 2025-04-20 11:51 | W.PN.OBG.DWH ---
Today's Communication / Plan
-
Continue with Zosyn pending ID consult
Await urine, genital and blood culture results
Follow CBC
Assessment/Plan
-
A/P Possible endometritis-Patient improved clinically, awaiting urine and blood culture results. Patient aware discharge wouldn't be expected until culture results return, she remains afebrile for at least 24 hours.
+ MRSA-ID consult ordered for further antibiotic management. Discussed with neonatology, she recommends she can continue to breastfeed, maintain good hand hygiene, and that she should alert her peds
Subjective Data
-
Feels 'better', some discomfort at end of urine stream.
Have been informed by RN that her leg wound is + for MRSA.
Objective Data
-
Laboratory Results
04/20/25 06:52
04/19/25 12:07
Vital Signs
Temp Pulse Resp BP Pulse Ox
98.5 F 88 16 105/63 98
04/20/25 07:45 04/20/25 07:45 04/20/25 07:45 04/20/25 07:45 04/20/25 10:00
Abdomen-soft, nontender except mildly to deep palpation in midline of suprapubic area. No rebound or guarding. Good bowel sounds
Extremities-no calf pain
--- NOTE | 2025-04-20 14:50 | LACTATION ---
Saw patient for consult at 1400. Her 26 day old baby and are in the room with her. She states baby has been nursing well with the nipple shield and she has used her own pump to express about 6 oz. which is stored in the
refrigerator, so her can bottle feed if needed. She has all her own cleaning supplies from home including soap. I provided a micro-steam bag for sanitizing. All meds are compatible with including Zosyn (L2) per [facility]
Medications and Mothers' Milk. She has a small wound on her upper left thigh from a punch biopsy she had last week. The nurse says the culture just came back positive for MRSA, so she covered wound with a small dressing. Awaiting consult with
Infectious Disease, but pt. should be able to continue , infant should avoid contact with the infected area. Parents verbalize understanding of this. If change of antibiotic is needed, it should be compatible with as
well, due to pt's desire to continue . ie: Vancomycin is rated L1 compatible with . Will have IBCLC follow up tomorrow as well.
[2025-04-20 15:07] VITALS: BP 111/69
--- NOTE | 2025-04-20 15:48 | CON.ID ---
Consultation
-
Date/Time Consultation Requested: 04/20/2025 1145
Date/Time Consultation Performed: 04/20/2025 1520
Requesting Provider: Dr. Haddad
Performing Provider: Dr. Caceres
Reason for Consultation: Endometritis
Chief Complaint / Past History
History of Present Illness
Whitley Dey is a 29-year-old female being evaluated at the request of Dr. Haddad regarding endometritis. History is obtained from chart review, along with patient interview.
The patient is day 25 following vaginal delivery of a healthy baby girl. The patient was GBS positive, and was on antibiotics at the time of delivery.
Approximately 3 to 4 days after delivery, she developed a body rash, and was evaluated by Derm. She underwent biopsy of the left upper thigh, she was diagnosed with PUPPs and placed on steroids. Approximate 5 days ago she developed vaginal
discharge. Around the same time, she also developed some increasing discomfort at the prior biopsy site. Yesterday she developed increasing abdominal pain, nausea, along with fevers and chills. She presented to the emergency room where she was
found to have a marked leukocytosis. Abdominal imaging was performed, along with an endocervical culture. Endocervical cultures have revealed the presence of strep agalactiae, and the wound culture of the left leg has revealed the presence of
MRSA. Infectious Diseases asked to comment upon further antimicrobial management.
At the present time patient reports that she is feeling somewhat improved. She reports that she occasionally feels sweaty. She did have a fever overnight. She still is with some abdominal discomfort, but no nausea.
Past History
Past Medical History: None
Past Surgical History: None
Allergy History:
No Known Allergies Allergy (Verified 04/19/25 11:30)
Medications Reviewed: Yes
Current Antibiotics:
Zosyn 3.375 g IV every 6 hours
Social History
Tobacco: Non-Smoker
Alcohol: None
Drug: None
Personal:
Living: With Family
Employment: Employed
Family History
Family History: Not Pertinent
Review of Systems
Vital Signs
Temp Pulse Resp BP Pulse Ox
98.4 F 63 16 111/69 98
04/20/25 15:07 04/20/25 15:07 04/20/25 15:07 04/20/25 15:07 04/20/25 15:07
Physical Exam
Physical Exam
Constitutional: No Acute Distress, Comfortable and Non-toxic
Eyes: No Conjunctival Hemorrhage and Sclera Anicteric
Oral: No Thrush and No Ulcers
Cardiovascular: S1/S2; Negative S3/S4
Pulmonary: Clear; Negative Wheezes, Rales or Rhonchi
Gastrointestinal: Soft, Tender, Non Distended and Normal Bowel Sounds
Extremities: Edema (Trace); Negative Cyanosis or Erythema
Skin: Warm, Dry and Rash; Negative Jaundice
Wound: Other (Punch biopsy site left upper thigh without significant erythema or tenderness. Single suture in place.)
Neurological: Awake and Alert
Psychological: Calm
Lab / Diagnostic Study Results
04/20/25 06:52
04/19/25 12:07
Abs Immat Gran (auto) 0.1 10^3/uL (0-0.05) H 04/20/25 06:52
Absolute Neuts (auto) 17.1 10^3/uL (1.4-6.5) H 04/20/25 06:52
Absolute Lymphs (auto) 2.0 10^3/uL (1.2-3.4) 04/20/25 06:52
Absolute Monos (auto) 1.5 10^3/uL (0.1-0.6) H 04/20/25 06:52
Absolute Basos (auto) 0.1 10^3/uL (0-0.2) 04/20/25 06:52
Immature Gran % 0.6 % (0-0.5) H 04/20/25 06:52
Neutrophils % 82.3 % (42.2-75.2) H 04/20/25 06:52
Lymphocytes % 9.5 % (20.5-51.1) L 04/20/25 06:52
Monocytes % 7.2 % (1.7-9.3) 04/20/25 06:52
Eosinophils % 0.1 % (0-6) 04/20/25 06:52
Basophils % 0.3 % (0-2) 04/20/25 06:52
Lactic Acid 2.3 mmol/L (0.7-2.0) H 04/19/25 12:07
Ur Squamous Epith Cells 3-5 /LPF (Few) 04/19/25 12:07
Microbiology Results
Micro:
04/19/25 13:37 Blood Culture - Preliminary
Blood/Venous No Growth in 24 hours- Final report to follow
04/19/25 13:37 Blood Culture - Preliminary
Blood/Venous No Growth in 24 hours- Final report to follow
04/19/25 12:41 Genital Culture - Preliminary
Endo-cervical Streptococcus agalactiae
04/19/25 12:07 Urine Culture - Preliminary
Urine
04/19/25 12:12 Wound Culture - Preliminary
Leg - Left Staph aureus MRSA
Gram Stain - Preliminary
04/19/25 12:41 Chlamydia trachomatis (PCR) - Final
Endo-cervical Neisseria gonorrhoeae (PCR) - Final
04/19/25 12:41 Trichomonas Wet Mount - Final
Vagina
04/19/25 12:07 Influenza Types A & B (ABDIFATAH) - Final
Nasal Swab Negative for Influenza A & B, NAAT
Negative results must be combined with clinical observations
and patient history.
Nucleic Acid Amplification test (NAAT)performed on the
[employer] platform.
Imaging:
04/19/2025 CT abdomen/pelvis: No obstructive uropathy. Normal appendix. Mild colonic fecal burden. Nonspecific small bowel pattern with scattered gas and fluid. Evaluation of the distal descending colon and sigmoid colon is somewhat limited
secondary to underdistention, which limits assessment of bowel thickness. Segmental underdistention versus pathologic narrowing involving 2 segments of the sigmoid colon, as described. Recommend correlation with any symptoms or history of possible
inflammatory bowel disease. No evidence of bowel obstruction. Diffuse subtle hazy opacity of the retroperitoneal periaortic fat with small lymph nodes noted. This is nonspecific, though could suggest a reactive or inflammatory process. No focal
mass or collection. The uterus and adnexal regions are unremarkable.
Assessment / Plan
Endometritis
- Cultures with Streptococcus agalactiae
Leukocytosis
Fever
Left thigh biopsy site with MRSA
- Little evidence of infection
Lactic acidosis
day #25 s/p vaginal
Recommendations:
Continue with Zosyn 3.375 g IV every 6 hours
Local care to the left thigh biopsy site. Would clean with Dakin's every 12 hours and apply dressing.
Trend white count and temperature curve.
Follow pending cultures.
Follow for clinical improvement.
[2025-04-20] MEDS: NSS IV (17:35)
[2025-04-20] MEDS: DAKIN'S SOLUTION 0.125% 1/4 STRENGTH 1 ML TOPICAL (21:05)
[2025-04-20] MEDS: TRIAMCINOLONE ACETONIDE 0.1% OINTMENT 1 APPLIC TOPICAL (21:06)
[2025-04-20 23:32] VITALS: BP 110/65
[2025-04-21] MEDS: ZOSYN 50 IV ×4 (06:10→23:26)
[2025-04-21 07:25] VITALS: BP 112/71
[2025-04-21 07:37] LABS: Hematocrit 43.5 % (37.0-47.0); Hemoglobin 14.5 g/dL (12.0-16.0); Mean Corp Hgb Conc. 33.3 g/dL (33.0-37.0); Mean Corpuscular Volume 91.6 fL (81.0-99.0); Nucleated Red Blood Cells % 0 %; Platelet Count 248 10^3/uL (130-400); Red Cell Dist. Width 11.9 % (11.5-14.5)
[2025-04-21] MEDS: BACTROBAN 2% OINTMENT TOPICAL (08:43)
[2025-04-21] MEDS: DELTASONE 10 MG PO (08:43)
[2025-04-21] MEDS: TRIAMCINOLONE ACETONIDE 0.1% OINTMENT 1 APPLIC TOPICAL ×2 (08:43→19:41)
[2025-04-21] MEDS: PRENATAL PLUS 1 TABLET PO (08:43)
[2025-04-21] MEDS: DAKIN'S SOLUTION 0.125% 1/4 STRENGTH 473 ML TOPICAL (08:44)
--- NOTE | 2025-04-21 08:50 | W.PN.ID1 ---
Date of Service
Date of Service: April 21, 2025
Today's Communication
Continue antibiotics.
Assessment / Plan
Endometritis
- Cultures with Streptococcus agalactiae
Leukocytosis
- Improved
Fever
Left thigh biopsy site with MRSA
- Little evidence of infection
Lactic acidosis
day #26 s/p vaginal
Recommendations:
Continue with Zosyn 3.375 g IV every 6 hours
Local care to the left thigh biopsy site. Cleaning with Dakin's every 12 hours and apply dressing.
Trend white count and temperature curve.
Follow pending cultures.
Follow for clinical improvement.
Possible transition to oral regimen in the next 24 to 48 hours based upon clinical improvement.
Chief Complaint
-: Other (Endometritis)
Subjective / Review of Systems
Patient seen and examined. Overall feeling somewhat improved today, although not completely back to normal.
Review of Systems: No Fever and No Chills
Vital Signs / Physical Exam
Vital Signs
Vital Signs
Temp Pulse Resp BP Pulse Ox
98.2 F 66 18 112/71 98
04/21/25 07:25 04/21/25 07:25 04/21/25 07:25 04/21/25 07:25 04/21/25 07:25
Physical Exam
Constitutional: No Acute Distress, Well Developed, Comfortable and Non-toxic
Eyes: Sclera Anicteric
Cardiovascular: S1/S2; Negative S3/S4
Pulmonary: Clear and Non Labored
Gastrointestinal: Soft, Non Tender and Normal Bowel Sounds
Extremities: Edema; Negative Cyanosis or Erythema
Skin: Negative Rash or Jaundice
Wound: Other (Left thigh wound without significant erythema. No significant purulence.)
Neurological: Awake and Alert
Psychological: Calm
Objective Data
Lab Data
Lab Results
04/21/25 06:31
04/19/25 12:07
Lactic Acid 2.3 mmol/L (0.7-2.0) H 04/19/25 12:07
Total Bilirubin 0.8 mg/dl (0.2-1.3) 04/19/25 12:07
AST 20 U/L (14-36) 04/19/25 12:07
ALT 24 U/L (0-35) 04/19/25 12:07
Alkaline Phosphatase 97 U/L (38-126) 04/19/25 12:07
Most recent labs reviewed.
Micro Results:
04/19/25 12:12 Wound Culture - Final
Leg - Left Staph aureus MRSA
Gram Stain - Final
04/19/25 13:37 Blood Culture - Preliminary
Blood/Venous No Growth in 24 hours- Final report to follow
04/19/25 13:37 Blood Culture - Preliminary
Blood/Venous No Growth in 24 hours- Final report to follow
04/19/25 12:41 Genital Culture - Preliminary
Endo-cervical Streptococcus agalactiae
04/19/25 12:07 Urine Culture - Preliminary
Urine
04/19/25 12:41 Chlamydia trachomatis (PCR) - Final
Endo-cervical Neisseria gonorrhoeae (PCR) - Final
04/19/25 12:41 Trichomonas Wet Mount - Final
Vagina
04/19/25 12:07 Influenza Types A & B (ABDIFATAH) - Final
Nasal Swab Negative for Influenza A & B, NAAT
Negative results must be combined with clinical observations
and patient history.
Nucleic Acid Amplification test (NAAT)performed on the
[employer] platform.
Imaging:
04/19/2025 CT abdomen/pelvis: No obstructive uropathy. Normal appendix. Mild colonic fecal burden. Nonspecific small bowel pattern with scattered gas and fluid. Evaluation of the distal descending colon and sigmoid colon is somewhat limited
secondary to underdistention, which limits assessment of bowel thickness. Segmental underdistention versus pathologic narrowing involving 2 segments of the sigmoid colon, as described. Recommend correlation with any symptoms or history of possible
inflammatory bowel disease. No evidence of bowel obstruction. Diffuse subtle hazy opacity of the retroperitoneal periaortic fat with small lymph nodes noted. This is nonspecific, though could suggest a reactive or inflammatory process. No focal
mass or collection. The uterus and adnexal regions are unremarkable.
--- NOTE | 2025-04-21 11:38 | CM ---
Reviewed the chart notes. Patient continues with IV Zosyn. CM continues to be available to patient/family and is monitoring medical plan for needs at discharge.
Plan: Discharge to home when medically stable.
--- NOTE | 2025-04-21 13:28 | W.PN.OBG.DWH ---
Today's Communication / Plan
-
Continue current Abx regimen
Await results of Blood Cx
CBC in AM
Continue wound care
Likely for dc home tomorrow at which point will d/w ID best home regimen
Assessment/Plan
-
29yo
1. Suspected Endometritis
-Leukocytosis resolving (27> 20> 12)
-afebrile for 48hrs
-Bcx NG x 24 hrs, continue to follow
-continue Zosyn. Appreciate ID input.
-
2. PUPPS
-MRSA from her thigh Bx site.
-continue Abx regimen
-will wait for ID recommendations on home regimen
-Triamcinolone for itching.
3. continue regular diet.
Subjective Data
-
S: feeling better. No further abdominal pain. tolerating PO intake. No n/v/f/c. +ambulation, +void, Minimal lochia. Rash is much better, not as itchy
Baby is doing well.
Objective Data
-
Laboratory Results
04/21/25 06:31
04/19/25 12:07
Vital Signs
Temp Pulse Resp BP Pulse Ox
98.2 F 66 18 112/71 98
04/21/25 07:25 04/21/25 07:25 04/21/25 07:25 04/21/25 07:25 04/21/25 07:25
Last fever: 101.6 (04/09/25)
Gen: nad well appearing
Abd: soft, nt, nd, no rg
Ext: infected biopsy site on thigh has fresh bandage on so did not remove. surrounding skin with clusters of red papules
Blood Cx: NG x24hrs
Vaginal Cx: GBS +
Biopsy site cx: MRSA
[2025-04-21 15:30] VITALS: BP 117/78
[2025-04-21] MEDS: DAKIN'S SOLUTION 0.125% 1/4 STRENGTH 1 ML TOPICAL (19:41)
[2025-04-21 23:19] VITALS: BP 112/70
[2025-04-22] MEDS: ZOSYN 50 IV ×2 (06:00→11:43)
[2025-04-22 07:40] VITALS: BP 121/78
[2025-04-22 08:03] LABS: Hematocrit 43.4 % (37.0-47.0); Hemoglobin 14.5 g/dL (12.0-16.0); Mean Corp Hgb Conc. 33.4 g/dL (33.0-37.0); Mean Corpuscular Volume 91.2 fL (81.0-99.0); Nucleated Red Blood Cells % 0 %; Platelet Count 267 10^3/uL (130-400); Red Cell Dist. Width 11.8 % (11.5-14.5)
[2025-04-22] MEDS: PRENATAL PLUS 1 TABLET PO (08:46)
[2025-04-22] MEDS: DELTASONE 10 MG PO (08:46)
[2025-04-22] MEDS: DAKIN'S SOLUTION 0.125% 1/4 STRENGTH 473 ML TOPICAL (08:51)
[2025-04-22] MEDS: TRIAMCINOLONE ACETONIDE 0.1% OINTMENT 1 APPLIC TOPICAL (08:52)
--- NOTE | 2025-04-22 09:30 | W.PN.ID1 ---
Date of Service
Date of Service: April 22, 2025
Today's Communication
Continue antibiotics. See below�
Assessment / Plan
Endometritis
- Cultures with Streptococcus agalactiae
Leukocytosis
- Improved
Fever
- Resolved
Left thigh biopsy site with MRSA
- Little evidence of infection
Lactic acidosis
day #26 s/p vaginal
Recommendations:
Endocervical cultures positive for Strep agalactiae (GBS) only. Blood cultures negative.
Continue with Zosyn 3.375 g IV every 6 hours while inpatient.
-> At discharge, transition to amoxicillin 1000 mg p.o. q8 hours, to continue for an additional 8 to 10 days.
Local care to the left thigh biopsy site. Cleaning with Dakin's every 12 hours and apply dressing.
����������������������������������������������������������
Chief Complaint
-: Other (Endometritis)
Subjective / Review of Systems
Patient seen and examined. Overall feels well. Denies abdominal pain. Reports minimal to no vaginal discharge. No dysuria. No fevers.
Vital Signs / Physical Exam
Vital Signs
Vital Signs
Temp Pulse Resp BP Pulse Ox
97.8 F 69 18 121/78 98
04/22/25 07:40 04/22/25 07:40 04/22/25 07:40 04/22/25 07:40 04/22/25 07:40
Physical Exam
Constitutional: No Acute Distress, Well Developed, Comfortable and Non-toxic
Eyes: Sclera Anicteric
Cardiovascular: S1/S2; Negative S3/S4
Pulmonary: Clear and Non Labored
Gastrointestinal: Soft, Non Tender and Normal Bowel Sounds
Extremities: Edema; Negative Cyanosis or Erythema
Skin: Negative Rash or Jaundice
Wound: Other (Left thigh wound without significant erythema. No purulence. No periwound erythema)
Neurological: Awake and Alert
Psychological: Calm
Objective Data
Lab Data
Lab Results
04/22/25 07:09
04/19/25 12:07
Lactic Acid 2.3 mmol/L (0.7-2.0) H 04/19/25 12:07
Total Bilirubin 0.8 mg/dl (0.2-1.3) 04/19/25 12:07
AST 20 U/L (14-36) 04/19/25 12:07
ALT 24 U/L (0-35) 04/19/25 12:07
Alkaline Phosphatase 97 U/L (38-126) 04/19/25 12:07
Most recent labs reviewed.
Micro Results:
04/19/25 13:37 Blood Culture - Preliminary
Blood/Venous No Growth in 48 hours- Final report to follow
04/19/25 13:37 Blood Culture - Preliminary
Blood/Venous No Growth in 48 hours- Final report to follow
04/19/25 12:41 Genital Culture - Preliminary
Endo-cervical Streptococcus agalactiae
04/19/25 12:07 Urine Culture - Final
Urine Streptococcus agalactiae
04/19/25 12:12 Wound Culture - Final
Leg - Left Staph aureus MRSA
Gram Stain - Final
04/19/25 12:41 Chlamydia trachomatis (PCR) - Final
Endo-cervical Neisseria gonorrhoeae (PCR) - Final
04/19/25 12:41 Trichomonas Wet Mount - Final
Vagina
04/19/25 12:07 Influenza Types A & B (ABDIFATAH) - Final
Nasal Swab Negative for Influenza A & B, NAAT
Negative results must be combined with clinical observations
and patient history.
Nucleic Acid Amplification test (NAAT)performed on the
[employer] platform.
Imaging:
04/19/2025 CT abdomen/pelvis: No obstructive uropathy. Normal appendix. Mild colonic fecal burden. Nonspecific small bowel pattern with scattered gas and fluid. Evaluation of the distal descending colon and sigmoid colon is somewhat limited
secondary to underdistention, which limits assessment of bowel thickness. Segmental underdistention versus pathologic narrowing involving 2 segments of the sigmoid colon, as described. Recommend correlation with any symptoms or history of possible
inflammatory bowel disease. No evidence of bowel obstruction. Diffuse subtle hazy opacity of the retroperitoneal periaortic fat with small lymph nodes noted. This is nonspecific, though could suggest a reactive or inflammatory process. No focal
mass or collection. The uterus and adnexal regions are unremarkable.
Care Review
Plan reviewed with: Physician (Ophthalmology Technician)
--- NOTE | 2025-04-22 10:37 | CM ---
Reviewed the chart notes. Patient at discharge will be transitioned to oral antibiotic. CM continues to be available to patient/family and is monitoring medical plan for needs at discharge.
Plan: Discharge to home when medically stable. No anticipated needs identified at this time.
--- NOTE | 2025-04-22 10:50 | W.PN.OBG.DWH ---
Today's Communication / Plan
-
- DC home with amoxicillin 1000mg q8h x8d
Assessment/Plan
-
29yo s/p , admitted with suspected endometritis
Suspected endometritis
- Afebrile for >48hrs
- Blood cultures negative
- Appreciate ID input. Will discharged patient with Amoxicillin 1000mg q8h for 8 additional days. Patient to receive one more dose of Zosyn before discharge
PUPPS
- MRSA positive from biopsy site
- continue steroid taper
DC home with amoxicillin. Discharge instructions and return precautions reviewed and all questions answered. Patient has follow up in the office in 2 weeks.
Subjective Data
-
No complaints. No further fevers. Denies abdominal pain. Lochia minimal.
Objective Data
-
Laboratory Results
04/22/25 07:09
04/19/25 12:07
Vital Signs
Temp Pulse Resp BP Pulse Ox
97.8 F 69 18 121/78 98
04/22/25 07:40 04/22/25 07:40 04/22/25 07:40 04/22/25 07:40 04/22/25 07:40
General: well appearing
Leg wound covered with dressing
[2025-04-22 13:34] VITALS: BP 118/67
--- NOTE | 2025-04-22 13:59 | PTCARENOTE ---
Patient discharged home, transported by spouse. This RN removed patient's IV and took vitals on patient. Discharge instructions/medications reviewed with patient and spouse at bedside, both verbalized understanding. Belongings gathered in room by
patient and spouse, patient taken down to spouse's car with baby via staff escort and wheelchair.
== END 2025-04-22 13:49 | disposition home or self-care (01) | DRG 776 ==
LOC: 2 NORTH 16:15
PROVIDERS: Obstetrics & Gynecology; Physician Assistant; ADMITTING PHYSICIAN Obstetrics & Gynecology; EMERGENCY PHYSICIAN Emergency Medicine; OTHER PHYSICIAN Internal Medicine Infectious Disease
DX: O86.12 Endometritis following delivery (principal); Z11.52 Encounter for screening for COVID-19; O99.893 Other specified diseases and conditions complicating puerperium; L29.89 Other pruritus
CPT/HCPCS: 74177; 76856; 80053; 81003; 81015; 83605; 85025; 87040; 87070; 87077; 87086; 87147; 87186; 87205; 87210; 87491; 87502; 87591; 87811; 96361; 96365; 99285; Q9967